=== PATIENT | female | born 1985 | race Caucasian/White ===

== ENCOUNTER 2020-11-15 16:59 | Outpatient (CLI) | payer OTHER ==
[~2020-11-15] VITALS: Ht 162.6 cm; Wt 70.0 kg
[2020-11-15 17:32] LABS: MICROSCOPIC NOT IND
== END 2020-11-15 18:18 | disposition home or self-care (01) ==
LOC: LDOP 16:59
PROVIDERS: ATTEND Obstetrics & Gynecology
DX: O62.9 Abnormality of forces of labor, unspecified (principal); E86.0 Dehydration; Z3A.31 31 weeks gestation of pregnancy
CPT/HCPCS: 59025; 81003; 87086

== ENCOUNTER 2021-01-11 09:42 | Inpatient (IN) | payer OTHER ==
[~2021-01-11] VITALS: Ht 170.2 cm; Wt 87.2 kg
[2021-01-11 10:17] LABS: MICROSCOPIC NOT IND
[2021-01-11 10:36] LABS: PROTEIN/CREATININE RATIO,URINE < 96 (0-200); TOTAL PROTEIN,URINE RANDOM < 5 mg/dL (0-12)
[2021-01-11 11:02] LABS: BASOPHILS % (AUTO) 0 % (0-1); EOSINOPHILS % (AUTO) 0 % (1-7); LYMPHOCYTES % (AUTO) 13 % (22-44); MEAN CORPUSCULAR HEMOGLOBIN 27.7 pg (27.0-34.8); MEAN CORPUSCULAR HGB CONC 33.2 g/dL (32.4-35.8); MEAN PLATELET VOLUME 10.2 fL (7.4-10.4); MONOCYTES % (AUTO) 9 % (2-9); NEUTROPHILS % (AUTO) 77 % (42-75); PLATELET COUNT 237 x10^3/uL (130-400); RED BLOOD COUNT 4.71 x10^6/uL (3.82-5.3); RED CELL DISTRIBUTION WIDTH 14.2 % (9.6-15.2)
[2021-01-11 11:12] LABS: ALANINE AMINOTRANSFERASE 24 U/L (12-78); ALBUMIN 2.8 g/dL (3.4-5.0); ANION GAP 8 mmol/L (5-15); CALCIUM 9.6 mg/dL (8.5-10.1); CHLORIDE 108 mmol/L (98-107); CREATININE 0.56 mg/dL (0.55-1.02)
[2021-01-11 11:14] LABS: ALKALINE PHOSPHATASE 145 U/L (45-117); BILIRUBIN,TOTAL 0.4 mg/dL (0.2-1.0); TOTAL PROTEIN 7.2 g/dL (6.4-8.2)
[2021-01-11] MEDS ORDERED: CALCIUM CARBONATE 500 MG TAB.CHEW ONE (11:16)
[2021-01-11] MEDS ORDERED: OXYTOCIN 30U/ 0.9% NaCL 500ML 500 ML IV PRN (16:00)
[2021-01-11] MEDS ORDERED: TERBUTALINE 1 MG/ML, 1ML IVPush PRN (16:00)
[2021-01-11] MEDS ORDERED: FENTANYL PF 100 MCG/2ML IV PRN ×2 (16:00→23:00)
[2021-01-11] MEDS ORDERED: CALCIUM CARBONATE 500 MG TAB.CHEW PO PRN (16:00)
[2021-01-11] MEDS ORDERED: FENTANYL PF 100 MCG/2ML IVPush PRN (16:00)
[2021-01-11] MEDS: D5%-LACTATED RINGERS 1,000 ML IV SCH (16:00)
[2021-01-11] MEDS: LACTATED RINGERS 1,000 ML IV SCH ×2 (16:00→19:30)
[2021-01-11] MEDS ORDERED: OXYTOCIN 30U/ 0.9% NaCL 500ML 500 ML IV ONE (16:00)
[2021-01-11] MEDS ORDERED: TERBUTALINE 1 MG/ML, 1ML SQ PRN (16:00)
[2021-01-11] MEDS ORDERED: ONDANSETRON 2MG/ML, 2ML IVPush PRN ×2 (16:00→23:00)
[2021-01-11] MEDS ORDERED: BUPIVACAINE 0.25% ONE (19:15)
[2021-01-11] MEDS ORDERED: NALOXONE 0.4 MG/ML, 1ML IVPush PRN (19:30)
[2021-01-11] MEDS ORDERED: LACTATED RINGERS 1,000 ML IVBOLUS PRN (19:30)
[2021-01-11] MEDS ORDERED: FENTANYL/BUPIV./NS/PF 250 ML EPIDCONT SCH (19:30)
[2021-01-11] MEDS ORDERED: EPHEDRINE 50 MG/ML, 1ML IVPush PRN ×2 (19:30→23:00)
[2021-01-11] MEDS ORDERED: SODIUM CITRATE/CITRIC ACID 15 ML UDC ONE (21:59)
[2021-01-11] MEDS ORDERED: METOCLOPRAMIDE 5 MG/ML, 2ML ONE (21:59)
[2021-01-11] MEDS ORDERED: ALBUTEROL SULFATE 2.5 MG/3 ML NPPB PRN (23:00)
[2021-01-11] MEDS ORDERED: OXYcodone 5 MG/5 ML ORAL.SOL UDC PO PRN (23:00)
[2021-01-11] MEDS ORDERED: PROMETHAZINE 25 MG/ML, 1ML IV PRN (23:00)
[2021-01-11] MEDS ORDERED: HYDROmorphone 2 MG/ML, 1ML IVPush PRN (23:00)
[2021-01-11] MEDS ORDERED: hydrALAzine 20 MG/ML, 1ML IV PRN (23:00)
[2021-01-11] MEDS ORDERED: MIDAZOLAM 1 MG/ML, 2ML IV PRN (23:00)
[2021-01-11] MEDS ORDERED: HYDROcodone/APAP 7.5-325MG/15ML UDC PO PRN (23:00)
[2021-01-11] MEDS ORDERED: MEPERIDINE/PF 25MG/0.5ML IVPush PRN (23:00)
[2021-01-11] MEDS ORDERED: METOPROLOL 1 MG/ML, 5ML IV PRN (23:00)
[2021-01-11] MEDS ORDERED: LABETALOL 5MG/ML, 20ML IV PRN (23:00)
[2021-01-11] MEDS ORDERED: LIDOCAINE 1%, 20ML ONE (23:54)
[2021-01-12] MEDS: D5%-LACTATED RINGERS 1,000 ML IV SCH
[2021-01-12] MEDS: OXYTOCIN 30U/ 0.9% NaCL 500ML 500 ML IV SCH ×3 (00:30→20:30)
[2021-01-12] MEDS ORDERED: MISOPROSTOL 200 MCG TABLET PR PRN (00:30)
[2021-01-12] MEDS ORDERED: ONDANSETRON 2MG/ML, 2ML IV PRN (00:30)
[2021-01-12] MEDS ORDERED: morphine SULFATE 10 MG/ML, 1ML IVPush PRN (00:30)
[2021-01-12] MEDS ORDERED: BISACODYL 10 MG SUPP PR PRN (00:30)
[2021-01-12] MEDS ORDERED: MORPHINE SULFATE 4 MG/ML, 1ML IVPush PRN (00:30)
[2021-01-12] MEDS: LACTATED RINGERS 1,000 ML IV SCH ×8 (00:30→20:30)
[2021-01-12] MEDS: IBUPROFEN 600 MG TABLET PO SCH ×4 (00:30→18:30)
[2021-01-12] MEDS ORDERED: OXYcodone IR 5MG TABLET PO PRN ×2 (00:30)
[2021-01-12] MEDS ORDERED: CALCIUM CARBONATE 500 MG TAB.CHEW PO PRN (00:30)
[2021-01-12] MEDS ORDERED: ACETAMINOPHEN 500 MG TABLET ONE ×2 (01:06→20:40)
[2021-01-12] MEDS: ACETAMINOPHEN 325 MG TABLET PO SCH ×4 (01:09→19:30)
[2021-01-12 03:15] VITALS: BP 134/78
[2021-01-12] MEDS: KETOROLAC 30 MG/1 ML IV SCH ×4 (05:38→23:05)
[2021-01-12 07:40] VITALS: BP 111/73
[2021-01-12] MEDS: PRENATAL VIT/IRON/FA 1 EACH TABLET PO SCH (07:52)
[2021-01-12] MEDS: DOCUSATE 100 MG CAPSULE PO PRN ×2 (07:53→20:44)
[2021-01-12 09:27] LABS: BASOPHILS % (AUTO) 0 % (0-1); EOSINOPHILS % (AUTO) 0 % (1-7); LYMPHOCYTES % (AUTO) 12 % (22-44); MEAN CORPUSCULAR HEMOGLOBIN 28.1 pg (27.0-34.8); MEAN CORPUSCULAR HGB CONC 33.6 g/dL (32.4-35.8); MEAN PLATELET VOLUME 10.3 fL (7.4-10.4); MONOCYTES % (AUTO) 10 % (2-9); NEUTROPHILS % (AUTO) 78 % (42-75); PLATELET COUNT 198 x10^3/uL (130-400); RED BLOOD COUNT 3.61 x10^6/uL (3.82-5.3)
[2021-01-12] MEDS: SIMETHICONE 80 MG CHEW TAB PO PRN ×2 (14:37→23:18)
[2021-01-12 19:30] VITALS: BP 133/83
[2021-01-12] MEDS ORDERED: KETOROLAC 30 MG/1 ML ONE (23:01)
[2021-01-13] MEDS: LACTATED RINGERS 1,000 ML IV SCH ×2 (00:30→06:30)
[2021-01-13] MEDS ORDERED: ACETAMINOPHEN 500 MG TABLET ONE (02:04)
[2021-01-13] MEDS: ACETAMINOPHEN 325 MG TABLET PO SCH (02:10)
[2021-01-13] MEDS ORDERED: ACETAMINOPHEN 500 MG TABLET PO SCH (03:00)
[2021-01-13] MEDS: IBUPROFEN 600 MG TABLET PO SCH ×2 (05:05→13:20)
[2021-01-13] MEDS ORDERED: IBUP-1223 PO (06:11)
[2021-01-13] MEDS ORDERED: OXYC1TAB12 PO (06:11)
[2021-01-13] MEDS: OXYTOCIN 30U/ 0.9% NaCL 500ML 500 ML IV SCH (06:30)
[2021-01-13 07:00] VITALS: BP 128/83
[2021-01-13] MEDS: PRENATAL VIT/IRON/FA 1 EACH TABLET PO SCH (09:00)
[2021-01-13] MEDS: SIMETHICONE 80 MG CHEW TAB PO PRN (16:25)
== END 2021-01-13 18:10 | disposition home or self-care (01) | DRG 788 ==
LOC: LDOP 09:42 → LDIP 15:38 → 2NW 01-12 02:51
PROVIDERS: ADMIT Obstetrics & Gynecology; ATTEND Obstetrics & Gynecology
PROC: 10H07YZ Insertion of Other Device into Products of Conception, Via Natural or Artificial Opening (ICD-10-PCS; 2021-01-11)
PROC: 10907ZC Drainage of Amniotic Fluid, Therapeutic from Products of Conception, Via Natural or Artificial Opening (ICD-10-PCS; 2021-01-11)
PROC: 10D00Z1 Extraction of Products of Conception, Low, Open Approach (ICD-10-PCS; principal; 2021-01-12)
PROC: 0DNW0ZZ Release Peritoneum, Open Approach (ICD-10-PCS; 2021-01-12)
PROC: 3E0234Z Introduction of Serum, Toxoid and Vaccine into Muscle, Percutaneous Approach (ICD-10-PCS; 2021-01-12)
DX: O13.4 Gestational [pregnancy-induced] hypertension without significant proteinuria, complicating childbirth (principal); O34.211 Maternal care for low transverse scar from previous cesarean delivery; N73.6 Female pelvic peritoneal adhesions (postinfective); O76 Abnormality in fetal heart rate and rhythm complicating labor and delivery; O99.892 Other specified diseases and conditions complicating childbirth; Z20.822 Contact with and (suspected) exposure to COVID-19; Z37.0 Single live birth; Z30.2 Encounter for sterilization; Z3A.39 39 weeks gestation of pregnancy; Z82.49 Family history of ischemic heart disease and other diseases of the circulatory system; Z83.3 Family history of diabetes mellitus; Z88.2 Allergy status to sulfonamides; Z88.5 Allergy status to narcotic agent
CPT/HCPCS: 36415; 80053; 81003; 82570; 84156; 84550; 85025; 85461; 86592; 86850; 86900; 87635; G0378; J1885; J2790